=== PATIENT | male | born 1960 | race Caucasian/White ===

== ENCOUNTER 2017-06-06 11:23 | Day surgery (SDC) | payer OTHER ==
[2017-06-01 08:59] VITALS: BMI 22.8
[2017-06-06] MEDS ORDERED: MIDAZOLAM HCL 2 MG/2 ML SINGLE DOSE VIAL ONE (12:27)
[2017-06-06] MEDS ORDERED: ROPIVACAINE HCL 0.5% 30ML VIAL ONE (12:27)
[2017-06-06] MEDS ORDERED: DEXAMETHASONE SOD PHOSPHATE/PF 10 MG/ML SDV ONE (12:27)
[2017-06-06] MEDS ORDERED: EPINEPHrine 1:1,000 1 MG/1 ML - 30ML VIAL (INJECTION) ONE (13:29)
[2017-06-06] MEDS ORDERED: ONDANSETRON 4 MG/2 ML VIAL ONE ×2 (14:06→16:09)
[2017-06-06] MEDS ORDERED: KETOROLAC TROMETHAMINE 30 MG/1 ML VIAL ONE (14:06)
[2017-06-06] MEDS ORDERED: ceFAZolin SODIUM 1 GM VIAL ONE (14:06)
[2017-06-06] MEDS ORDERED: DEXAMETHASONE SOD PHOSPHATE 4 MG/1 ML VIAL ONE (14:06)
[2017-06-06] MEDS ORDERED: ONDANSETRON 4 MG/2 ML VIAL IVPUSH PRN (14:51)
[2017-06-06] MEDS ORDERED: oxyCODONE HCL 5 MG TABLET PO PRN (14:51)
[2017-06-06] MEDS ORDERED: LACTATED RINGERS SOLUTION 1,000 ML IV SCH (15:00)
[2017-06-06 18:32] VITALS: BP 137/68; TEMP 98
[2017-06-06 18:35] VITALS: PULSE 68
--- NOTE | 2017-06-06 20:31 | OP ---
DATE OF OPERATION: 06/06/2017 PREOPERATIVE DIAGNOSIS: Right shoulder rotator cuff tear. POSTOPERATIVE DIAGNOSES: 1. Right shoulder full-thickness rotator cuff supraspinatus tear. 2. Right shoulder glenohumeral joint labral tearing, proximal biceps tearing, diffuse synovitis. 3. Right shoulder subacromial impingement with anterior and inferior subacromial spur and bursitis. OPERATIVE PROCEDURE: 1. Right shoulder arthroscopic rotator cuff repair. 2. Right shoulder complete glenohumeral joint debridement. 3. Right shoulder arthroscopic subacromial decompression with anterior inferior acromioplasty. SURGEON: Benson Palafox MD [place] OPERATOR: FAB Ramos ANESTHESIA: Regional. COMPLICATIONS: None. ESTIMATED BLOOD LOSS: Minimal. INDICATIONS FOR PROCEDURE: The patient is a 56-year-old male with the above finding indicated for operative treatment. Risks, benefits, and alternatives were discussed with the patient at length. Proper informed consent was obtained. DESCRIPTION OF PROCEDURE: After proper identification of patient and correct operative site, regional anesthesia was given. The patient was placed in the beach chair position with all points of contact well padded with cervical position maintained throughout the procedure. The right upper extremity was prepped and draped in the usual sterile fashion. Arthroscopy was performed through posterior, lateral, and anterior portals. Incisions were taken sharply through the skin with blunt dissection to the joint capsule. Glenohumeral joint was observed and found to have significant synovitis. Diffuse labral fraying both superiorly, posteriorly, and inferiorly was noted. There was no debridement of the labrum, however. This was debrided with mechanical shaver. Mild fraying of the proximal biceps was noted, but the bulk was intact, and there was no indication for tenodesis or tenotomy at this time. Extraarticular portion of the biceps was brought into the joint. This was free of any abnormalities. [id number] synovitis was noted in the anterior joint capsule, and this was debrided with mechanical shaver. The subscapularis tendon was intact. Infraspinatus was felt to be intact with mild tendinosis, which was debrided with mechanical shaver. No loose bodies were found. There was a full-thickness tear of the most anterior part of the supraspinatus tendon measuring about 1.5 cm from anterior to posterior dimensions and retracted about 1 cm. This was able to be reapproximated to the tuberosity. The tuberosity was debrided and prepared for repair. An Arthrex SwiveLoc Repair S system was used. Arthroscope was then introduced into the subacromial space where severe bursitis was noted. This was debrided with mechanical shaver and ArthroWand. A large anterior inferior subacromial spur was noted, and an anterior inferior acromioplasty was performed. The rotator cuff was, again, debrided and prepared for repair. Tuberosity was further prepared for repair. Two Arthrex SwiveLoc anchors were placed at the articular margin and then FiberTape was passed through the rotator cuff. This was then crisscrossed and attached laterally with 2 further SwiveLoc anchors. This provided an excellent, stable repair with no tension on the repair. The shoulder was taken through a range of motion, and there were no gaps in the repair. There were no limits to range of motion. The wounds were irrigated with saline and repaired with 5-0 nylon sutures. Sterile dressing, ice , and sling were placed. The patient was reversed from anesthesia and brought to the recovery room in stable condition. He tolerated the procedure well. John Villanueva, the car rental sales assistant, was integral throughout this procedure. The procedure could not have been performed without a skilled operative car rental sales assistant. Gloria LEVIN/[id number]
== END 2017-06-06 17:35 | disposition home or self-care (01) ==
LOC: FASU 11:23
PROVIDERS: ATTEND Orthopaedic Surgery Hand Surgery
PROC: 0LB14ZZ Excision of Right Shoulder Tendon, Percutaneous Endoscopic Approach (ICD-10-PCS; principal; 2017-06-06 14:20)
PROC: 0RNJ4ZZ Release Right Shoulder Joint, Percutaneous Endoscopic Approach (ICD-10-PCS; 2017-06-06 14:20)
PROC: 0RBJ4ZZ Excision of Right Shoulder Joint, Percutaneous Endoscopic Approach (ICD-10-PCS; 2017-06-06 14:20)
DX: M75.121 Complete rotator cuff tear or rupture of right shoulder, not specified as traumatic (principal); M66.821 Spontaneous rupture of other tendons, right upper arm; M24.111 Other articular cartilage disorders, right shoulder; M65.811 Other synovitis and tenosynovitis, right shoulder; M75.41 Impingement syndrome of right shoulder; M75.51 Bursitis of right shoulder
CPT/HCPCS: 94760